=== PATIENT | female | born 1945 | race Caucasian/White ===

== ENCOUNTER 2017-02-21 20:48 | Emergency (ER) | payer MEDICARE, BC ==
[2016-01-29 14:29] VITALS: BMI 28.7
[~2017-02-21 20:48] MED LIST: ACETAMINOPHEN325 MG PO; BAYER CHEWABLE81 MG PO; COZAAR25 MG PO; GLUCOPHAGE500 MG PO; LEVOXYL25 MCG PO; LEXAPRO10 MG PO; LIPITOR40 MG PO; MELATONIN 3 MG1 TAB PO; NAPROSYN500 MG PO; NORCO 7.5/325 T1 TA1 PO; OMEGA 3 FISH OI1 CAP PO; PRILOSEC20 MG PO; XANAX0.5 MG PO
[2017-02-21 21:45] LABS: BASOPHILS 0.2 % (0.0-2.0); EOSINOPHILS 0.7 % (0-7); HEMATOCRIT 36.9 % (36.0-48.0); HEMOGLOBIN 12.7 g/dL (12-16); IMMATURE GRANULOCYTES 0.1 % (0-5); LYMPHOCYTES 27.6 % (15-50); MCH 32.3 pg (26.0-34.0); MCHC 34.4 g/dL (31.0-37.0); MCV 93.9 fL (80.0-100.0); MEAN PLATELET VOLUME 9.4 fL (7.4-10.4); MONOCYTES 5.3 % (2-11); NEUTROPHILS 66.1 % (40-80); PLATELET COUNT 279 10x3/uL (130-400); RBC 3.93 10x6/uL (4.00-5.40); RDW 12.7 % (11.5-14.5); WBC 8.4 10x3/uL (4.8-10.8)
[2017-02-21 21:57] LABS: ALBUMIN 4.1 g/dL (3.4-5.0); ALKALINE PHOSPHATASE 73 U/L (46-116); ALT (SGPT) 22 U/L (10-68); CALC OSMOLALITY 281 mosm/kg (275-300); CALCIUM 9.5 mg/dL (8.5-10.1); CARBON DIOXIDE 25.6 mmol/L (21.0-32.0); CHLORIDE - SERUM 102 mmol/L (98-107); CREATININE - SERUM 1.1 mg/dL (0.6-1.3); GLUCOSE 142 mg/dL (74-106); POTASSIUM - SERUM 3.9 mmol/L (3.5-5.1); SODIUM 138 mmol/L (136-145); UREA NITROGEN 24 mg/dL (7-18); eGFR NON AFRICAN AMERICAN 52 mL/min (90-120)
[2017-02-21 22:06] LABS: AMYLASE - SERUM 48 U/L (25-115); CREATINE KINASE 91 UL (21-215); LIPASE 430 U/L (73-393); PRO BNP 21 pg/mL (0-125); THYROID STIMULATING HORMONE 3.99 uIU/mL (0.36-3.74); TROPONIN-I < 0.017 ng/mL (0.000-0.060)
== END 2017-02-21 22:50 | disposition home or self-care (01) ==
LOC: D.ER 20:48
PROVIDERS: Family Medicine
DX: F41.9 Anxiety disorder, unspecified (principal); E11.9 Type 2 diabetes mellitus without complications; E78.5 Hyperlipidemia, unspecified; I10 Essential (primary) hypertension

== ENCOUNTER 2017-07-21 12:00 | Emergency (ER) | payer MEDICARE, BC ==
[2016-01-29 14:29] VITALS: BMI 28.7
[2017-07-21 13:06] LABS: BASOPHILS 0.2 % (0-2); EOSINOPHILS 0.5 % (0-7); HEMATOCRIT 35.5 % (36.0-48.0); HEMOGLOBIN 12.7 g/dL (12-16); IMMATURE GRANULOCYTES 0.2 % (0-5); MCHC 35.8 g/dL (31.0-37.0); MCV 92.2 fL (80.0-100.0); MEAN PLATELET VOLUME 9.4 fL (7.4-10.4); MONOCYTES 4.4 % (2-11); NEUTROPHILS 70.7 % (40-80); PLATELET COUNT 235 10x3/uL (130-400); RBC 3.85 10x6/uL (4.00-5.40); RDW 12.9 % (11.5-14.5); WBC 5.9 10x3/uL (4.8-10.8)
[2017-07-21 13:24] LABS: ALBUMIN 3.8 g/dL (3.4-5.0); ALKALINE PHOSPHATASE 65 U/L (46-116); ALT (SGPT) 15 U/L (10-68); CALC OSMOLALITY 282 mosm/kg (275-300); CALCIUM 9.3 mg/dL (8.5-10.1); CARBON DIOXIDE 27.2 mmol/L (21.0-32.0); CHLORIDE - SERUM 105 mmol/L (98-107); CREATININE - SERUM 0.8 mg/dL (0.6-1.3); GLUCOSE 123 mg/dL (74-106); POTASSIUM - SERUM 3.6 mmol/L (3.5-5.1); SODIUM 141 mmol/L (136-145); UREA NITROGEN 14 mg/dL (7-18); eGFR NON AFRICAN AMERICAN 75 mL/min (90-120)
[2017-07-21 13:33] LABS: APPEARANCE CLOUDY (CLEAR); BILIRUBIN NEGATIVE (NEGATIVE); COLOR YELLOW (YELLOW); GLUCOSE NEGATIVE (NEGATIVE); KETONE MODERATE mg/dL (NEGATIVE); LEUKOCYTE ESTERASE 2+ (NEGATIVE); NITRITE NEGATIVE (NEGATIVE); PROTEIN NEGATIVE (NEGATIVE); SPECIFIC GRAVITY 1.015 (1.005-1.020)
[2017-07-21 13:34] LABS: BACTERIA MANY /hpf (NONE SEEN); MUCUS >1+ /lpf (NONE SEEN); RED CELLS - URINE 0-5 /hpf (0-5)
== END 2017-07-21 15:32 | disposition home or self-care (01) ==
LOC: D.ER 12:00
PROVIDERS: Emergency Medicine
DX: R42 Dizziness and giddiness (principal); E11.9 Type 2 diabetes mellitus without complications; I10 Essential (primary) hypertension

== ENCOUNTER 2017-12-15 05:50 | Day surgery (SDC) | payer MEDICARE, BC ==
[2017-12-13 11:32] LABS: BASOPHILS 0.2 % (0-2); EOSINOPHILS 0.8 % (0-7); HEMATOCRIT 39.3 % (36.0-48.0); HEMOGLOBIN 13.3 g/dL (12-16); IMMATURE GRANULOCYTES 0.2 % (0-5); LYMPHOCYTES 42.8 % (15-50); MCH 32.3 pg (26.0-34.0); MCHC 33.8 g/dL (31.0-37.0); MCV 95.4 fL (80.0-100.0); MEAN PLATELET VOLUME 9.6 fL (7.4-10.4); MONOCYTES 5.2 % (2-11); NEUTROPHILS 50.8 % (40-80); PLATELET COUNT 260 10x3/uL (130-400); RBC 4.12 10x6/uL (4.00-5.40); RDW 12.9 % (11.5-14.5); WBC 4.8 10x3/uL (4.8-10.8)
[2017-12-13 11:43] LABS: ANION GAP 13.1 mmol/L (8-16); CALCIUM 9.6 mg/dL (8.5-10.1); CARBON DIOXIDE 27.9 mmol/L (21.0-32.0); CREATININE - SERUM 1.2 mg/dL (0.6-1.3)
[~2017-12-15] VITALS: Ht 157.5 cm; Wt 64.0 kg
--- NOTE | ~2017-12-15 | OP ---
PATIENT NAME: EMRE NESBITT MEDICAL RECORD: [id number] :47 LOCATION:D.OPS ADMISSION DATE: SURGEON: HERBIE SUNG MD DATE OF OPERATION: 12/15/2017 PREOPERATIVE DIAGNOSES: 1. Gallstones. 2. Gastroesophageal reflux disease. 3. Hyperlipidemia. 4. Hypertension. 5. Diabetes mellitus. POSTOPERATIVE DIAGNOSES: 1. Gallstones. 2. Gastroesophageal reflux disease. 3. Hyperlipidemia. 4. Hypertension. 5. Diabetes mellitus. PROCEDURE: 1. Laparoscopic cholecystectomy. 2. EGD with biopsy. SURGEON: Herbie Sung MD REPORT OF PROCEDURE: The patient's abdomen was prepped and draped in sterile fashion. A cutdown was made on the superior aspect of the umbilicus, 0 Vicryls were placed in the fascia bilaterally, and the fascia was incised with 15-blade. I then bluntly entered the peritoneal cavity and placed a 12-mm Hannah port. Under direct visualization, a 5-mm trocar was placed in the epigastrium and 2 more 5-mm trocars were placed in the right subcostal region. The gallbladder was grasped and elevated and it showed no signs of inflammatory changes. The cystic artery and cystic duct were dissected free and these were clipped proximally and distally and ligated in standard fashion. The gallbladder was taken off the liver bed using electrocautery and placed in the right upper quadrant. Any bleeding from the liver bed was then treated with electrocautery. We irrigated out the right upper quadrant and assured there was no sign of any bleeding or bile leakage. At this point, the ports and insufflation were then removed and the gallbladder was taken out through the umbilicus. The umbilical fascia was closed with interrupted 0 Vicryls times 3. The wounds were irrigated out with normal saline and infused with 10 mL of 0.25% Marcaine with epinephrine. The skin incisions were all closed with subcutaneous 5-0 Monocryl and dressed appropriately. We then advanced an Olympus endoscope through the mouth and esophagus. We passed through the stomach and into the duodenum. We got to about the second to the third portion of the duodenum. There were no masses or lesions noted and no ulcerations were visible. There was some inflammation of the duodenum consistent with duodenitis as we pulled back to the pylorus with some erythema at the pyloric outlet and this was biopsied and sent off for permanent specimen. There were no masses, lesions, or ulcerations around the pylorus. As we retroflexed, there were noted to be multiple hyperplastic polyps throughout the gastric body, biopsy was taken of one of the larger polyps and sent off for permanent specimen. As we pulled back the scope, we noted the GE junction was at 37 cm from the teeth. The GE junction appeared to be normal with no signs of hiatal hernia. The lumen showed no signs of inflammatory changes or ulcerations throughout the distal esophagus. At this OPERATIVE REPORT [id number] EMRE NESBITT, biopsy was taken of the distal esophagus. We then removed the insufflation from the stomach and slowly pulled the scope through the esophagus with care taken and note, there were no masses or lesions visible. COMPLICATIONS: None. CONDITION: Stable. ANESTHESIA: General endotracheal and local. BLOOD LOSS: Minimal. TRANSINT:[id number] Voice Confirmation ID: [id number] DOCUMENT ID: [id number] HERBIE SUNG MD CC: AMBER SORTO MD [id number] DICTATION DATE: 12/15/17 0850 INTERNET ASSESSOR: 12/15/17 1120 [facility] 12/15/17 [facility] [address] [place] [address]
[~2017-12-15 05:50] MED LIST changes: +BUSPAR 15 MG TA15 MG PO; +KRILL OIL 1,001 EAC1 PO; +PROBIOTIC1 EAC1 PO; +VITAMIN B COMPL1 TAB PO
[2017-12-15 07:03] VITALS: BP 149/68; Ht 157.5 cm; Wt 64.0 kg
[2017-12-15] MEDS ORDERED: MEPERIDINE HCL50 MG PO (08:44)
== END 2017-12-15 10:30 | disposition home or self-care (01) ==
LOC: D.OPS 05:50 → D.PAN 11:30 → D.OPS 11:30
PROVIDERS: Surgery
DX: K80.20 Calculus of gallbladder without cholecystitis without obstruction (principal); K31.7 Polyp of stomach and duodenum; K29.70 Gastritis, unspecified, without bleeding; K21.9 Gastro-esophageal reflux disease without esophagitis; E78.5 Hyperlipidemia, unspecified; I10 Essential (primary) hypertension; E11.9 Type 2 diabetes mellitus without complications; Z01.812 Encounter for preprocedural laboratory examination

== ENCOUNTER → 2017-12-21 17:16 | Outpatient (CLI) | payer MEDICARE, BC ==
[2017-12-15 07:03] VITALS: BMI 25.8
[~2017-12-21 17:16] MED LIST changes: +MEPERIDINE HCL50 MG PO
[2017-12-21 17:41] LABS: BASOPHILS 0.2 % (0-2); EOSINOPHILS 1.3 % (0-7); HEMATOCRIT 24.6 % (36.0-48.0); HEMOGLOBIN 8.2 g/dL (12-16); IMMATURE GRANULOCYTES 0.2 % (0-5); LYMPHOCYTES 34.3 % (15-50); MCH 32.5 pg (26.0-34.0); MCHC 33.3 g/dL (31.0-37.0); MCV 97.6 fL (80.0-100.0); MEAN PLATELET VOLUME 9.2 fL (7.4-10.4); MONOCYTES 6.7 % (2-11); NEUTROPHILS 57.3 % (40-80); PLATELET COUNT 297 10x3/uL (130-400); RBC 2.52 10x6/uL (4.00-5.40); RDW 14.4 % (11.5-14.5); WBC 5.3 10x3/uL (4.8-10.8)
[2017-12-21 18:15] LABS: ANION GAP 15.6 mmol/L (8-16); BILIRUBIN - TOTAL 0.91 mg/dL (0.2-1.3); CARBON DIOXIDE 28.4 mmol/L (21.0-32.0); CREATININE - SERUM 1.1 mg/dL (0.6-1.3); PROTEIN - SERUM 6.9 g/dL (6.4-8.2)
== END | disposition home or self-care (01) ==
LOC: D.LAB 16:00
PROVIDERS: Surgery
DX: G89.18 Other acute postprocedural pain (principal); I10 Essential (primary) hypertension

== ENCOUNTER → 2017-12-27 07:13 | Outpatient (CLI) | payer MEDICARE, BC ==
[2017-12-15 07:03] VITALS: BMI 25.8
== END | disposition home or self-care (01) ==
LOC: D.CT 07:13
DX: R10.9 Unspecified abdominal pain (principal)

== ENCOUNTER 2018-03-09 11:10 | Emergency (ER) | payer MEDICARE, BC ==
[2017-12-15 07:03] VITALS: BMI 25.8
[2018-03-09 11:36] LABS: BASOPHILS 0.2 % (0-2); EOSINOPHILS 0.8 % (0-7); HEMATOCRIT 35.8 % (36.0-48.0); HEMOGLOBIN 12.6 g/dL (12-16); LYMPHOCYTES 38.2 % (15-50); MCH 33.2 pg (26.0-34.0); MCHC 35.2 g/dL (31.0-37.0); MCV 94.2 fL (80.0-100.0); MEAN PLATELET VOLUME 9.4 fL (7.4-10.4); MONOCYTES 5.7 % (2-11); NEUTROPHILS 55.1 % (40-80); PLATELET COUNT 262 10x3/uL (130-400); RDW 12.8 % (11.5-14.5); WBC 6.1 10x3/uL (4.8-10.8)
[2018-03-09 11:50] LABS: PROTIME 12.8 SECONDS (11.6-15.0)
[2018-03-09 11:53] LABS: D-DIMER-QUANTITATIVE < 0.27 ug/mLFEU (0.20-0.54)
[2018-03-09 11:57] LABS: ALBUMIN 3.7 g/dL (3.4-5.0); ALKALINE PHOSPHATASE 56 U/L (46-116); ALT (SGPT) 22 U/L (10-68); BILIRUBIN - TOTAL 0.39 mg/dL (0.2-1.3); CALC OSMOLALITY 277 mosm/kg (275-300); CALCIUM 9.3 mg/dL (8.5-10.1); CARBON DIOXIDE 22.3 mmol/L (21.0-32.0); CHLORIDE - SERUM 103 mmol/L (98-107); GLUCOSE 95 mg/dL (74-106); POTASSIUM - SERUM 3.8 mmol/L (3.5-5.1); PROTEIN - SERUM 7.4 g/dL (6.4-8.2); SODIUM 138 mmol/L (136-145); UREA NITROGEN 19 mg/dL (7-18); eGFR NON AFRICAN AMERICAN 58 mL/min (90-120)
[2018-03-09 12:13] LABS: CHOL - HDL RATIO 4.2 ratio (2.3-4.1); CHOLESTEROL, TOTAL 195 mg/dL (0-200); CKMB 0.5 U/L (0.0-3.6); CREATINE KINASE 60 UL (21-215); HDL CHOLESTEROL 46 mg/dL (32-96); LDL CHOLESTEROL 114 mg/dL (0-100); LDL-HDL RATIO 2.5 ratio (1.5-3.5); LIPASE 208 U/L (73-393); MAGNESIUM - SERUM 2.1 mg/dL (1.8-2.4); PRO BNP 40 pg/mL (0-125); TRIGLYCERIDE 176 mg/dL (30-200); TROPONIN-I < 0.017 ng/mL (0.000-0.060)
[2018-03-09 12:32] LABS: APPEARANCE CLEAR (CLEAR); BILIRUBIN NEGATIVE (NEGATIVE); COLOR YELLOW (YELLOW); GLUCOSE NEGATIVE (NEGATIVE); KETONE NEGATIVE (NEGATIVE); NITRITE NEGATIVE (NEGATIVE); PROTEIN NEGATIVE (NEGATIVE); UROBILINOGEN NORMAL (NORMAL)
== END 2018-03-09 16:19 | disposition home or self-care (01) ==
LOC: D.ER 11:10
PROVIDERS: Emergency Medicine; Nurse Practitioner Family
DX: K21.9 Gastro-esophageal reflux disease without esophagitis (principal); F41.9 Anxiety disorder, unspecified; I10 Essential (primary) hypertension

== ENCOUNTER 2018-12-08 18:04 | Emergency (ER) | payer MEDICARE, BC ==
[~2018-12-08] VITALS: Ht 157.5 cm; Wt 70.9 kg
[2018-12-08 18:10] VITALS: Ht 157.5 cm; Wt 70.9 kg
[2018-12-08 18:33] LABS: BASOPHILS 0.3 % (0-2); EOSINOPHILS 0.6 % (0-7); HEMATOCRIT 37.5 % (36.0-48.0); HEMOGLOBIN 12.9 g/dL (12-16); IMMATURE GRANULOCYTES 0.2 % (0-5); LYMPHOCYTES 40.7 % (15-50); MCH 33.1 pg (26.0-34.0); MCHC 34.4 g/dL (31.0-37.0); MCV 96.2 fL (80.0-100.0); MEAN PLATELET VOLUME 9.4 fL (7.4-10.4); NEUTROPHILS 53.2 % (40-80); PLATELET COUNT 280 10x3/uL (130-400); RDW 12.4 % (11.5-14.5); WBC 6.3 10x3/uL (4.8-10.8)
[2018-12-08 18:47] LABS: ALBUMIN 3.7 g/dL (3.4-5.0); ANION GAP 16.1 mmol/L (8-16); BILIRUBIN - TOTAL 0.29 mg/dL (0.2-1.3); CALCIUM 8.7 mg/dL (8.5-10.1); CARBON DIOXIDE 25.7 mmol/L (21.0-32.0); CREATININE - SERUM 1.2 mg/dL (0.6-1.3); POTASSIUM - SERUM 3.8 mmol/L (3.5-5.1); PROTEIN - SERUM 7.6 g/dL (6.4-8.2)
[2018-12-08 19:02] LABS: APPEARANCE CLEAR (CLEAR); BILIRUBIN NEGATIVE (NEGATIVE); COLOR YELLOW (YELLOW); GLUCOSE NEGATIVE (NEGATIVE); KETONE NEGATIVE (NEGATIVE); NITRITE NEGATIVE (NEGATIVE); PROTEIN NEGATIVE (NEGATIVE); UROBILINOGEN NORMAL (NORMAL)
[2018-12-08] MEDS ORDERED: FLAGYL500 MG PO (21:51)
[2018-12-08] MEDS ORDERED: CIPRO500 MG PO (21:51)
[2018-12-08 22:23] VITALS: BP 155/78
== END 2018-12-08 22:23 | disposition home or self-care (01) ==
LOC: D.ER 18:04
PROVIDERS: Family Medicine
DX: K57.92 Diverticulitis of intestine, part unspecified, without perforation or abscess without bleeding (principal); R10.84 Generalized abdominal pain; E11.9 Type 2 diabetes mellitus without complications

== ENCOUNTER 2018-12-16 10:38 | Emergency (ER) | payer MEDICARE, BC ==
[~2018-12-16] VITALS: Ht 157.5 cm; Wt 70.9 kg
[~2018-12-16 10:38] MED LIST changes: +CIPRO500 MG PO; +FLAGYL500 MG PO
[2018-12-16 10:40] VITALS: Ht 157.5 cm; Wt 70.9 kg
[2018-12-16 11:03] LABS: BASOPHILS 0.4 % (0-2); EOSINOPHILS 0.8 % (0-7); HEMATOCRIT 35.8 % (36.0-48.0); HEMOGLOBIN 12.7 g/dL (12-16); IMMATURE GRANULOCYTES 0.2 % (0-5); LYMPHOCYTES 26.9 % (15-50); MCH 33.4 pg (26.0-34.0); MCHC 35.5 g/dL (31.0-37.0); MCV 94.2 fL (80.0-100.0); MEAN PLATELET VOLUME 9.4 fL (7.4-10.4); MONOCYTES 7.9 % (2-11); NEUTROPHILS 63.8 % (40-80); PLATELET COUNT 232 10x3/uL (130-400); RDW 12.4 % (11.5-14.5); WBC 5.3 10x3/uL (4.8-10.8)
[2018-12-16 11:27] LABS: ALBUMIN 3.6 g/dL (3.4-5.0); ALKALINE PHOSPHATASE 58 U/L (46-116); ALT (SGPT) 27 U/L (10-68); AMYLASE - SERUM 26 U/L (25-115); BILIRUBIN - TOTAL 0.41 mg/dL (0.2-1.3); CALC OSMOLALITY 279 mosm/kg (275-300); CALCIUM 8.8 mg/dL (8.5-10.1); CARBON DIOXIDE 24.7 mmol/L (21.0-32.0); CHLORIDE - SERUM 103 mmol/L (98-107); CREATININE - SERUM 1.2 mg/dL (0.6-1.3); GLUCOSE 125 mg/dL (74-106); LIPASE 171 U/L (73-393); POTASSIUM - SERUM 3.7 mmol/L (3.5-5.1); PROTEIN - SERUM 7.2 g/dL (6.4-8.2); SODIUM 139 mmol/L (136-145); UREA NITROGEN 14 mg/dL (7-18); eGFR NON AFRICAN AMERICAN 47 mL/min (90-120)
[2018-12-16 11:29] LABS: TROPONIN-I < 0.017 ng/mL (0.000-0.060)
[2018-12-16 11:43] LABS: APPEARANCE CLEAR (CLEAR); BILIRUBIN NEGATIVE (NEGATIVE); COLOR YELLOW (YELLOW); EPITHELIAL CELLS 0-5 /hpf (0-5); GLUCOSE NEGATIVE (NEGATIVE); KETONE NEGATIVE (NEGATIVE); NITRITE NEGATIVE (NEGATIVE); PROTEIN NEGATIVE (NEGATIVE); RED CELLS - URINE RARE /hpf (0-5); SPECIFIC GRAVITY 1.015 (1.005-1.020); UROBILINOGEN NORMAL (NORMAL); WHITE CELLS - URINE 0-5 /hpf (0-5)
[2018-12-16] MEDS ORDERED: BENTYL 20 MG TA20 MG PO (13:41)
[2018-12-16] MEDS ORDERED: ZOFRAN ODT4 MG/UDTAB PO (13:41)
[2018-12-16] MEDS ORDERED: LOMOTIL 2.5-0.1 EAC1 PO (13:42)
[2018-12-16 14:15] VITALS: BP 143/76
== END 2018-12-16 14:17 | disposition home or self-care (01) ==
LOC: D.ER 10:38
PROVIDERS: Family Medicine
DX: A08.4 Viral intestinal infection, unspecified (principal); R11.2 Nausea with vomiting, unspecified; E11.9 Type 2 diabetes mellitus without complications

== ENCOUNTER 2019-10-09 16:47 | Inpatient (IN) | payer MEDICARE, BC ==
[~2019-10-09] VITALS: Ht 157.5 cm; Wt 79.4 kg
[~2019-10-09 16:47] MED LIST changes: +BENTYL 20 MG TA20 MG PO; +LOMOTIL 2.5-0.1 EAC1 PO; +ZOFRAN ODT4 MG/UDTAB PO
[2019-10-09] MEDS ORDERED: PROTONIX40 MG PO (17:09)
[2019-10-09 17:42] LABS: BASOPHILS 0.1 % (0-2); EOSINOPHILS 0.4 % (0-7); HEMATOCRIT 34.7 % (36.0-48.0); HEMOGLOBIN 11.6 g/dL (12-16); IMMATURE GRANULOCYTES 0.3 % (0-5); LYMPHOCYTES 32.1 % (15-50); MCH 32.4 pg (26.0-34.0); MCHC 33.4 g/dL (31.0-37.0); MCV 96.9 fL (80.0-100.0); MEAN PLATELET VOLUME 9.6 fL (7.4-10.4); MONOCYTES 5.6 % (2-11); NEUTROPHILS 61.5 % (40-80); PLATELET COUNT 255 10x3/uL (130-400); RBC 3.58 10x6/uL (4.00-5.40); RDW 13.4 % (11.5-14.5); WBC 6.7 10x3/uL (4.8-10.8)
[2019-10-09 17:51] LABS: CALC OSMOLALITY 283 mosm/kg (275-300); CALCIUM 9.1 mg/dL (8.5-10.1); CARBON DIOXIDE 25.1 mmol/L (21.0-32.0); CHLORIDE - SERUM 105 mmol/L (98-107); CREATININE - SERUM 0.9 mg/dL (0.6-1.3); GLUCOSE 119 mg/dL (74-106); POTASSIUM - SERUM 3.7 mmol/L (3.5-5.1); SODIUM 141 mmol/L (136-145); UREA NITROGEN 17 mg/dL (7-18); eGFR NON AFRICAN AMERICAN 65 mL/min (90-120)
[2019-10-09 17:51] LABS: APPEARANCE CLEAR (CLEAR); BILIRUBIN NEGATIVE (NEGATIVE); COLOR YELLOW (YELLOW); GLUCOSE NEGATIVE (NEGATIVE); KETONE NEGATIVE (NEGATIVE); NITRITE NEGATIVE (NEGATIVE); PROTEIN NEGATIVE (NEGATIVE); UROBILINOGEN NORMAL (NORMAL)
[2019-10-09 17:52] LABS: BACTERIA FEW /hpf (NEGATIVE); EPITHELIAL CELLS 0-5 /hpf (0-5); RED CELLS - URINE 0-5 /hpf (0-5); WHITE CELLS - URINE 0-5 /hpf (NEGATIVE)
[2019-10-09 17:59] LABS: ALBUMIN 3.7 g/dL (3.4-5.0); ALKALINE PHOSPHATASE 79 U/L (46-116); ALT (SGPT) 80 U/L (10-68); AMYLASE - SERUM 37 U/L (25-115); BILIRUBIN - TOTAL 0.26 mg/dL (0.2-1.3); LIPASE 280 U/L (73-393); PROTEIN - SERUM 7.5 g/dL (6.4-8.2); TROPONIN-I < 0.017 ng/mL (0.000-0.060)
--- NOTE | 2019-10-09 18:20 | NUR ---
TO CT VIA STRETCHER WITH REPRODUCTION TECHNICIAN
[2019-10-09 18:45] VITALS: BP 160/79
--- NOTE | 2019-10-09 18:45 | NUR ---
RTND FROM CT. PAIN RESOLVED. DENIES NAUSEA
--- NOTE | 2019-10-09 19:06 | NUR ---
BS REPORT TO STACEY KEY
[2019-10-09 22:19] VITALS: BP 149/70; BMI 32.1
[2019-10-10] VITALS: BP 116/61
[2019-10-10 04:00] VITALS: BP 118/61
--- NOTE | 2019-10-10 04:50 | NUR ---
RESTING WELL THROUGHOUT SHIFT, COMPLAINED OF PAIN TO ABDOMEN AT 2215 AND 0350 WITH MORPHINE AND ZOFRAN BEING GIVEN AND EFFECTIVE. DID LIKE TO HAVE THE ZOFRAN FIRST, STATED IT MADE HER FEEL BETTER TO HAVE IT FIRST. 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
[2019-10-10 07:07] LABS: APTT 26.3 SECONDS (22.8-39.4); INR 1.06 (0.85-1.17); PROTIME 13.3 SECONDS (11.6-15.0)
--- NOTE | 2019-10-10 07:16 | NUR ---
PT RESTING IN BED. NO SIGNS OF DISTRESS. IV TO LEFT FORARM PATENT NO REDNESS OR TENDERNESS. ON 2L NC. DENIES ANY FURTHER NEED AT THIS TIME. CALL LIGHT IN REACH. BED LOW POSITION. NO FAMILY AT BEDSIDE AT THIS TIME.
[2019-10-10 07:18] LABS: BASOPHILS 0.2 % (0-2); EOSINOPHILS 1.1 % (0-7); HEMATOCRIT 33.5 % (36.0-48.0); HEMOGLOBIN 10.9 g/dL (12-16); IMMATURE GRANULOCYTES 0.4 % (0-5); LYMPHOCYTES 41.6 % (15-50); MCH 32.3 pg (26.0-34.0); MCHC 32.5 g/dL (31.0-37.0); MCV 99.4 fL (80.0-100.0); MONOCYTES 6.5 % (2-11); NEUTROPHILS 50.2 % (40-80); PLATELET COUNT 245 10x3/uL (130-400); RBC 3.37 10x6/uL (4.00-5.40); RDW 13.8 % (11.5-14.5); WBC 5.4 10x3/uL (4.8-10.8)
[2019-10-10 07:30] LABS: % SATURATION 29 % (15-55); IRON 84 ug/dl (35-150); TOTAL IRON BIND CAPACITY 284 ug/dl (260-445); UNSAT IRON BIND CAPACITY 200 ug/dl (150-375)
[2019-10-10 07:50] LABS: ALBUMIN 3.2 g/dL (3.4-5.0); ALKALINE PHOSPHATASE 73 U/L (46-116); ALT (SGPT) 76 U/L (10-68); BILIRUBIN - TOTAL 0.36 mg/dL (0.2-1.3); CALC OSMOLALITY 286 mosm/kg (275-300); CALCIUM 8.6 mg/dL (8.5-10.1); CARBON DIOXIDE 27.1 mmol/L (21.0-32.0); CHLORIDE - SERUM 107 mmol/L (98-107); FERRITIN 33 ng/mL (3-244); GLUCOSE 116 mg/dL (74-106); MAGNESIUM - SERUM 2.1 mg/dL (1.8-2.4); POTASSIUM - SERUM 3.6 mmol/L (3.5-5.1); PROTEIN - SERUM 6.7 g/dL (6.4-8.2); SODIUM 143 mmol/L (136-145); THYROID STIMULATING HORMONE 8.54 uIU/mL (0.36-3.74); UREA NITROGEN 15 mg/dL (7-18); eGFR NON AFRICAN AMERICAN 58 mL/min (90-120)
[2019-10-10 08:42] VITALS: BP 138/63
[2019-10-10 12:29] VITALS: BP 114/49
[2019-10-10 13:20] LABS: HEMATOCRIT 32.4 % (36.0-48.0); HEMOGLOBIN 10.4 g/dL (12-16)
--- NOTE | 2019-10-10 17:32 | NUR ---
PT IS WITHOUT DISTRESS.SHE DENIES NEEDS.CALL LIGHT IN REACH
[2019-10-10 17:35] VITALS: BP 130/58
--- NOTE | 2019-10-10 19:13 | NUR ---
IN BED WITH TELEVISION ON, ABLE TO VOICE ALL NEEDS. UP AD SYED TO RESTROOM AND ABOUT ROOM, SHOWS NO S/S OF ANY ACUTE DISTRESS. WOULD LIKE PAIN MEDICATION CLOSER TO BED TIME. WILL NOTE ANY CHANGE.
[2019-10-10 20:29] VITALS: BP 127/61
--- NOTE | 2019-10-10 22:08 | NUR ---
AT 2112 REQUESTED PAIN MEDICATION AND NAUSEA MEDS. GIVEN PER ORDERS. EFFECTIVE. HAS NO FURTHER COMPLAINTS. WILL NOTE ANY CHANGE.
--- NOTE | 2019-10-11 00:29 | NUR ---
I have reviewed this patient and I concur with the Shift Assessment completed by the Licensed Practical Nurse today this shift.
[2019-10-11 01:22] VITALS: BP 151/71
--- NOTE | 2019-10-11 04:25 | NUR ---
RESTED WELL THIS SHIFT. HAD NO S/S OF ANY DISTRESS. VOICED NO CONCERNS. WILL NOTE ANY CHANGE.
[2019-10-11 06:20] VITALS: BP 141/62
[2019-10-11 07:13] LABS: BASOPHILS 0.2 % (0-2); EOSINOPHILS 0.9 % (0-7); HEMATOCRIT 31.2 % (36.0-48.0); HEMOGLOBIN 10.2 g/dL (12-16); IMMATURE GRANULOCYTES 0.2 % (0-5); LYMPHOCYTES 32.6 % (15-50); MCH 32.5 pg (26.0-34.0); MCHC 32.7 g/dL (31.0-37.0); MCV 99.4 fL (80.0-100.0); MEAN PLATELET VOLUME 9.9 fL (7.4-10.4); MONOCYTES 7.7 % (2-11); NEUTROPHILS 58.4 % (40-80); PLATELET COUNT 213 10x3/uL (130-400); RBC 3.14 10x6/uL (4.00-5.40); RDW 13.6 % (11.5-14.5); WBC 5.6 10x3/uL (4.8-10.8)
[2019-10-11 07:24] LABS: ANION GAP 11.1 mmol/L (8-16); CALCIUM 8.2 mg/dL (8.5-10.1); CARBON DIOXIDE 28.4 mmol/L (21.0-32.0); MAGNESIUM - SERUM 1.9 mg/dL (1.8-2.4); PHOSPHOROUS 3.1 mg/dL (2.5-4.9); POTASSIUM - SERUM 3.5 mmol/L (3.5-5.1); VANCOMYCIN - TROUGH 17.1 ug/mL (10.0-20.0)
[2019-10-11 09:01] VITALS: BP 163/60
[2019-10-11] MEDS ORDERED: REMERON30 MG PO (10:46)
[2019-10-11 10:47] VITALS: Ht 157.5 cm; Wt 79.4 kg
--- NOTE | 2019-10-11 10:51 | NUR ---
IN ROOM. DISCUSSED WITH DR AND FAMILY STAYING ANOTHER NIGHT WITH BIPAP BROUGHT FROM HOME. WILL GO GET AT SOME POINT TODAY. CL IN REACH. NO NEEDS AT THIS TIME. DANIELLE
[2019-10-11] MEDS ORDERED: LEXAPRO20 MG PO (11:43)
[2019-10-11] MEDS ORDERED: FLAGYL500 MG PO (13:50)
[2019-10-11] MEDS ORDERED: ADOXA100 MG PO (13:51)
[2019-10-11 13:57] VITALS: BP 145/76
--- NOTE | 2019-10-11 14:51 | NUR ---
IV THERAPY REMOVED FROM THE LEFT FOREARM. DISCHARGE INSTRUCTIONS GIVEN. PATIENT AND VERBALIZED UNDERSTANDING. WILL NOTIFY ME WHEN READY TO LEAVE.
== END 2019-10-11 15:24 | disposition home or self-care (01) | DRG 392 ==
LOC: D.ER 16:47 → D.MS 19:11
PROVIDERS: Family Medicine; ADMIT Family Medicine; ATTEND Family Medicine
DX: K57.92 Diverticulitis of intestine, part unspecified, without perforation or abscess without bleeding (principal); E11.9 Type 2 diabetes mellitus without complications; K21.9 Gastro-esophageal reflux disease without esophagitis; E03.9 Hypothyroidism, unspecified; F41.8 Other specified anxiety disorders; D64.9 Anemia, unspecified; E86.0 Dehydration